=== PATIENT | male | born 1970 | race Caucasian/White ===

== ENCOUNTER 2021-05-03 05:25 | Emergency (ER) | payer MEDICAID, SELFPAY ==
[2021-05-03 05:25] VITALS: BP 145/96; PULSE 75; RESP 18; TEMP 36.1; O2SAT 99; BMI 25.8
--- NOTE | 2021-05-03 05:34 | EDS_ITS ---
HPI History of Present Illness Chief Complaint: Edema Informant: patient Onset/Context/Timing Onset: Hours (1) Context: - (awoke w/ sx) Timing: Continuous Quality: swollen Location: back of throat Current Severity: Moderate Maximum Severity: Moderate Worsened by: swallowing Relieved by: nothing Associated Symptoms Associated Symptoms: gagging. no sob or emesis. Narrative Narrative: Patient woke this morning with concerning swelling in the back of his throat. No trouble breathing. It is somewhat difficult to swallow but he is able. Some pain. No fevers or chills. Patient was out drinking alcohol heavily last night prior to going to bed. He had angioedema in the past with lisinopril so is no longer on YOMI inhibitor. [facility] Medical History HTN (hypertension) Home Medications prednisone 40 mg PO DAILY 5 Days #10 tablet 05/03/21 [Rx Last Taken Unknown] Allergy/AdvReac Type Severity Reaction Status Date / Time lisinopril Allergy Angioedema Verified 05/03/21 05:29 Social History Smoking Status: Never smoker ROS ROS ED Constitutional Constitutional ED: Denies chills or fever(s) Eyes Eyes: Denies change in vision or diplopia ENT ENT ED: Reports as per HPI and throat swelling; Denies ear pain, rhinorrhea or tongue swelling Cardiovascular Cardiovascular: Denies chest pain or palpitations Respiratory/Chest Respiratory/Chest: Denies cough or dyspnea Integumentary Denies abscess, Abrasions or rash Neurologic Neurologic: Denies headache(s), paresthesias or weakness EXAM Physical Exam Const Vital Signs: 05/03/21 05:25 05/03/21 05:30 Temperature 97 F L Temperature Source Temporal Pulse Rate 75 Respiratory Rate 18 Respiratory Effort Normal Respiratory Pattern Normal Blood Pressure 145/96 H Blood Pressure Mean 112 Pulse Ox 99 Positive well nourished and well developed General Appearance ED: well developed and NAD HEENT HEENT Narrative: Midline edematous uvula. Normal tonsils. No trismus. Normal tongue. Voice somewhat garbled, no stridor. Negative for trauma or tenderness Eyes PERRL and EOMs intact bilaterally Neck no lymphadenopathy and supple Resp normal respiratory effort Extremity normal to inspection General Extremety ED: Negative for edema General Extremity: Negative for edema Neuro oriented x3, CN's II-XII intact bilaterally and gait normal Sensorium / Orientation: alert Psych mental status grossly normal Skin no rashes or lesions noted, no wounds and skin turgor normal MDM MDM MDM Narrative Medical decision making narrative: Patient reassured this is uvulitis, angioedema is less likely although it is a rare occurrence/cause of uvulitis, given the history of heavy alcohol use prior to going to bed which has a significant association with uvulitis. Given this I suspect it will improve quickly if he avoids alcohol, I think it is reasonable to try him on a course of prednisone since he is healthy and not a diabetic, he is asking for something to try to help with the fact that he keeps making him gag. Give him a dose of Benadryl here as well as prednisone and a prescription for short burst. We discussed reasons to return and when to follow-up. Discharge Plan Triage Chief Complaint: Edema ED Provider: Praful Garg Dx/Rx/DC Orders Clinical Impression: Uvulitis Instructions: ED Uvulitis Prescriptions: New prednisone 20 MG tablet 40 mg PO DAILY 5 Days Qty: 10 RF: 0 Primary Care Provider: NOT,DEFINED Referrals: Marciano Singh MD [STAFF PHYSICIAN] - 1 Week if not improving NOT,DEFINED [Primary Care Provider] - Activity Restrictions/Additional Instructions: May try drinking ice water. Avoid alcohol for now, and in large quantities, as it is associated with uvulitis. Disposition Disposition: Home, Self Care
[2021-05-03] MEDS: DiphenhydrAMINE 25 MG Capsule 50 MG PO (05:38)
[2021-05-03] MEDS: predniSONE 20 MG Tablet 40 MG PO (05:38)
== END 2021-05-03 06:05 | disposition home or self-care (01) ==
LOC: ED 06:02
PROVIDERS: Emergency Provider Emergency Medicine
DX: K12.2 Cellulitis and abscess of mouth (principal)
CPT/HCPCS: 99283

== ENCOUNTER 2025-01-17 16:02 | Outpatient (RCR) | payer OTHER, SELFPAY ==
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
--- NOTE | 2025-05-16 09:04 | HP.PT.NRP ---
Patient Information Patient Information: AMIRA TIDWELL was seen in my office for initial evaluation on 01/17/25. The following Plan of Care was established for this patient: POC Established Initial Frequency: 2x /Week Initial Duration: 4 Weeks Anticipated Interventions Patient/Client Instruction: Educate patient on: Condition and Plan of Care For the Purpose of:: To decrease pain, To increase ROM, To improve ability to perform ADL's, To increase tolerance to activity/condition/position, To improve ability of physical actions for home/community/work/leisure, To improve health of tissue, To decrease soft tissue restriction, To increase flexibility/ROM and To improve tolerance to ADL's Therapeutic Exercise to Include: Strength training, Postural training, Flexibilty training, Active ROM and Scapular Strength/Stabilization For the Purpose of:: To decrease pain, To increase ROM, To improve muscle performance and motor function, To increase tolerance to activity/condition/position, To improve ability of physical actions for home/community/work/leisure, To improve health of tissue, To decrease soft tissue restriction, To increase flexibility/ROM and To improve tolerance to ADL's Manual Therapy Techniques to Include: Mobilization and Soft tissue mobilization For the Purpose of:: To decrease pain, To increase ROM, To improve health of tissue and To decrease soft tissue restriction TENS: Yes IF ES: Yes Cryotherapy (ice pack, ice massage): Yes Thermo therapy (hot pack): Yes Ultrasound (thermal/non thermal): Yes For the Purpose of:: To decrease pain, To increase ROM, To improve nutrient delivery to tissue, To increase oxygenation perfusion, To improve health of tissue and To decrease soft tissue restriction Last Seen Last Seen: This patient was last seen in our office . Pertinent comments regarding their Physical therapy will appear below: Patient seen for PT for INTIAL EVALUTION for neck pain and d/c to HEP At this point I will be discontinuing this patient from physical therapy. I would be happy to see this patient again in the future if found appropriate by the physician. Thank you! Yoshi Vasquez, PT, Cert MDT, OCS Balance/Gait/Functional tests Balance/Special Test Scores Oswestry Neck Score: 17
== END 2025-01-17 19:00 | disposition home or self-care (01) ==
LOC: PT 16:02
PROVIDERS: Referring Provider Student in an Organized Health Care Education/Training Program; Visit Provider Student in an Organized Health Care Education/Training Program
DX: M54.2 Cervicalgia (principal); G89.29 Other chronic pain
CPT/HCPCS: 97012; 97162